=== PATIENT | female | born 1990 | race Caucasian/White ===

== ENCOUNTER 2016-04-02 20:50 | Emergency (ER) | payer OTHER, MEDICAID ==
[~2016-04-02] VITALS: Ht 172.7 cm; Wt 89.5 kg
[~2016-04-02 20:50] MED LIST: BACT800T5 PO
[2016-04-02 21:13] VITALS: BP 137/85; PULSE 78; RESP 18; TEMP 98.6; O2SAT 99
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
[2016-04-02] MEDS ORDERED: IBUP-232 PO (23:35)
[2016-04-02] MEDS ORDERED: CYCL1TAB29 PO (23:35)
[2016-04-03 00:04] VITALS: BP 132/86
== END 2016-04-03 00:16 | disposition home or self-care (01) ==
LOC: PHEFT 20:50
DX: S20.221A Contusion of right back wall of thorax, initial encounter (principal); S16.1XXA Strain of muscle, fascia and tendon at neck level, initial encounter; V43.52XA Car driver injured in collision with other type car in traffic accident, initial encounter
CPT/HCPCS: 72125; 72131; 99284; L0150